=== PATIENT | female | born 1965 | race Caucasian/White ===

== ENCOUNTER 2017-03-24 20:16 | Emergency (ER) | payer OTHER ==
[~2017-03-24] VITALS: Ht 162.6 cm; Wt 86.4 kg
[~2017-03-24 20:16] MED LIST: ACTONEL35 MG PO; CALCIUM 600 +1 EA15 PO; COLACE100 MG PO; DEPAKOTE ER500 MG PO; DEPAKOTE250 MG PO; KEFLEX500 MG PO; NAPROXEN250 MG PO; NORCO 5/3251 TABLET PO; RISPERIDONE1 MG PO; TOPAMAX200 MG PO; TRILEPTAL150 MG PO
[2017-03-25 00:25] VITALS: BP 129/92
== END 2017-03-25 00:03 | disposition home or self-care (01) ==
LOC: EME 20:16 → RME 20:16
PROC: 3E0234Z Introduction of Serum, Toxoid and Vaccine into Muscle, Percutaneous Approach (ICD-10-PCS; principal; 2017-03-24)
DX: S81.811A Laceration without foreign body, right lower leg, initial encounter (principal); Z23 Encounter for immunization; W25.XXXA Contact with sharp glass, initial encounter
CPT/HCPCS: 99281; 99284

== ENCOUNTER 2017-10-20 20:47 | Observation (INO) | payer OTHER ==
[~2017-10-20] VITALS: Ht 160 cm; Wt 86.0 kg
[~2017-10-20 20:47] MED LIST changes: +DEPAKOTE ER250 MG PO; -DEPAKOTE250 MG PO; -TRILEPTAL150 MG PO; +TRILEPTAL300 MG PO
[2017-10-20 21:36] LABS: BASOPHIL (%) 0.8 % (0-1); EOSINOPHIL (%) 2.5 % (0-5); EOSINOPHIL COUNT 0.1 K/uL (0-0.3); HEMATOCRIT 40.7 % (36.0-46.0); HEMOGLOBIN 14.3 G/DL (11.9-15.5); IMMATURE GRANULOCYTE (%) 0.2 % (0.0-0.7); LYMPHOCYTE (%) 43.5 % (15-42); LYMPHOCYTE COUNT 2.1 K/uL (1.0-2.8); MCH 31.7 PG (29.0-34.0); MCHC 35.1 G/DL (30.0-36.0); MCV 90.2 FL (83-99); MONOCYTE (%) 14.6 % (3-12); MONOCYTE COUNT 0.7 K/uL (0-0.8); NEUTROPHIL (%) 38.4 % (45-76); NEUTROPHIL COUNT 1.8 K/uL (1.8-6.4); PLATELET COUNT 101 K/uL (156-360); RBC DIS.WIDTH-CV 12.1 % (11.8-14.6); RBC DIS.WIDTH-SD 40.2 % (39-53); RED BLOOD COUNT 4.51 M/uL (3.80-5.20); WHITE BLOOD COUNT 4.8 K/uL (4.1-10.2)
[2017-10-20 21:49] LABS: CHLORIDE 108 mEq/L (99-109); POTASSIUM 4.5 mEq/L (3.7-5.4); SODIUM 143 mEq/L (136-147)
[2017-10-20 21:51] LABS: GLUCOSE 111 mg/dL (70-99)
[2017-10-20 21:54] LABS: CREATININE 1.1 mg/dL (0.6-1.3); GFR ESTIMATE (CALCULATED) 56 mL/min/
[2017-10-20 21:55] LABS: UREA NITROGEN (BUN) 21 mg/dL (9-23)
[2017-10-20 22:03] LABS: TROP-I INTERPRETATION NEGATIVE; TROPONIN-I < 0.01 ng/mL (0.0-0.30)
[2017-10-20] MEDS ORDERED: BUSPAR15 MG PO (23:00)
[2017-10-20] MEDS ORDERED: ZIPRASIDONE HCL80 MG PO (23:00)
[2017-10-20] MEDS ORDERED: ZIPRASIDONE HCL40 MG PO (23:00)
[2017-10-20] MEDS ORDERED: TYLENOL REGULA325 MG PO (23:04)
[2017-10-20] MEDS ORDERED: PHILLIPS'400 MG/5 M PO (23:05)
[2017-10-21 00:31] LABS: APPEARANCE SL.HAZY ((CLEAR)); BILIRUBIN NEGATIVE; BLOOD SMALL; COLOR YELLOW ((YELLOW)); GLUCOSE (STRIP) NEGATIVE; KETONES NEGATIVE; LEUKOCYTES TRACE; NITRITE NEGATIVE; PROTEIN (STRIP) NEGATIVE; SPECIFIC GRAVITY 1.016 (1.000-1.030); UROBILINOGEN 0.2 MG/DL (0.2-1.0)
[2017-10-21 00:41] LABS: BACTERIA NONE SEEN /HPF; EPITHELIAL CELLS NONE SEEN /HPF; MUCUS TRACE /LPF; RED BLOOD CELLS 0-5 /HPF (0-5); UCUL ADDED? YES
[2017-10-21 01:49] VITALS: BP 114/75
[2017-10-21 01:52] LABS: HDL CHOLESTEROL 69 MG/DL (Desirable>=50); LDL CHOLESTEROL 70 mg/dL (Desirable<100); NON-HDL CHOLESTEROL 84 mg/dL (Desirable<160); TOTAL CHOLESTEROL 153 mg/dL (Desirable<200); TRIGLYCERIDES 69 MG/DL (Normal: <150)
[2017-10-21 04:27] VITALS: BP 135/82
[2017-10-21 08:38] LABS: HEMOGLOBIN A1c (GLYCOHEMOGLOB) 4.9 % (Below 5.7)
[2017-10-21 09:15] VITALS: BP 130/80
[2017-10-21] MEDS ORDERED: ASPIR-LOW81 MG PO (10:55)
[2017-10-21 11:18] VITALS: BP 127/69
[2017-10-21 15:16] VITALS: BP 130/61
== END 2017-10-21 17:18 | disposition home or self-care (01) ==
LOC: EME 20:47 → EDOF 10-21 00:01 → 4SOUTH 10-21 00:01 → ENRESERV 10-21 00:19 → 4SOUTH 10-21 01:17
PROVIDERS: Emergency Medicine; Hospitalist
DX: R53.1 Weakness (principal); F72 Severe intellectual disabilities; R56.9 Unspecified convulsions; N39.0 Urinary tract infection, site not specified; Z87.440 Personal history of urinary (tract) infections
CPT/HCPCS: 70450; 80048; 80061; 81003; 83036; 84484; 85025; 85610; 87086; 93005; 93306; 99281; 99285; G0378; J1650

== ENCOUNTER 2018-01-19 18:03 | Emergency (ER) | payer OTHER ==
[~2018-01-19] VITALS: Ht 160 cm; Wt 85.4 kg
[~2018-01-19 18:03] MED LIST changes: +ASPIR-LOW81 MG PO; +BUSPAR15 MG PO; +PHILLIPS'400 MG/5 M PO; +TYLENOL REGULA325 MG PO; +ZIPRASIDONE HCL40 MG PO; +ZIPRASIDONE HCL80 MG PO
[2018-01-19 21:14] LABS: BASOPHIL (%) 0.5 % (0-1); EOSINOPHIL (%) 1.3 % (0-5); EOSINOPHIL COUNT 0.1 K/uL (0-0.3); HEMOGLOBIN 14.7 G/DL (11.9-15.5); IMMATURE GRANULOCYTE (%) 0.2 % (0.0-0.7); LYMPHOCYTE (%) 20.2 % (15-42); LYMPHOCYTE COUNT 1.3 K/uL (1.0-2.8); MCH 31.1 PG (29.0-34.0); MCHC 34.2 G/DL (30.0-36.0); MCV 91.1 FL (83-99); MONOCYTE (%) 12.5 % (3-12); MONOCYTE COUNT 0.8 K/uL (0-0.8); NEUTROPHIL (%) 65.3 % (45-76); NEUTROPHIL COUNT 4.2 K/uL (1.8-6.4); PLATELET COUNT 133 K/uL (156-360); RBC DIS.WIDTH-CV 12.3 % (11.8-14.6); RBC DIS.WIDTH-SD 41.1 % (39-53); RED BLOOD COUNT 4.72 M/uL (3.80-5.20); WHITE BLOOD COUNT 6.4 K/uL (4.1-10.2)
[2018-01-19 21:22] LABS: CHLORIDE 106 mEq/L (99-109); POTASSIUM 4.6 mEq/L (3.7-5.4); SODIUM 140 mEq/L (136-147)
[2018-01-19 21:24] LABS: GLUCOSE 107 mg/dL (70-99)
[2018-01-19 21:28] LABS: CREATININE 0.9 mg/dL (0.6-1.3); GFR ESTIMATE (CALCULATED) > 59 mL/min/
[2018-01-19 21:29] LABS: UREA NITROGEN (BUN) 21 mg/dL (9-23)
[2018-01-19 21:54] LABS: APPEARANCE CLEAR ((CLEAR)); BILIRUBIN NEGATIVE; BLOOD NEGATIVE; COLOR YELLOW ((YELLOW)); GLUCOSE (STRIP) NEGATIVE; KETONES 5; LEUKOCYTES TRACE; NITRITE NEGATIVE; PROTEIN (STRIP) NEGATIVE; SPECIFIC GRAVITY 1.018 (1.000-1.030)
[2018-01-19 22:10] LABS: BACTERIA NONE SEEN /HPF; EPITHELIAL CELLS NONE SEEN /HPF; MUCUS TRACE /LPF; RED BLOOD CELLS 0-5 /HPF (0-5); UCUL ADDED? NO; WHITE BLOOD CELLS 0-5 /HPF (0-5)
[2018-01-19 23:11] VITALS: BP 100/73
== END 2018-01-19 23:12 | disposition home or self-care (01) ==
LOC: EME 18:03
PROVIDERS: Emergency Medicine
DX: M54.5 Low back pain (principal); Z91.81 History of falling; Z87.440 Personal history of urinary (tract) infections; F79 Unspecified intellectual disabilities; R56.9 Unspecified convulsions; M19.90 Unspecified osteoarthritis, unspecified site; M81.0 Age-related osteoporosis without current pathological fracture; Z88.8 Allergy status to other drugs, medicaments and biological substances
CPT/HCPCS: 72110; 80048; 81003; 83605; 85025; 99281; 99284; J2060